=== PATIENT | female | born 1940 | race Hispanic/Latino ===

== ENCOUNTER 2023-09-04 06:21 | Day surgery (SDC) | payer MEDICARE ==
[2023-08-31 11:07] VITALS: BMI 29.2
[2023-09-04] MEDS ORDERED: Clindamycin/D5W 900 mg/50 ml Premix Bag ONE (06:59)
[2023-09-04] MEDS ORDERED: Gentamicin 80 MG/2 ML VIAL ONE (06:59)
[2023-09-04] MEDS ORDERED: Vancomycin (BATCH) 1.5 GM/300 ML BAG ONE (07:20)
[2023-09-04] MEDS ORDERED: Ketamine In 0.9 % NaCl 50 MG/5 ML SYRINGE ONE (08:37)
[2023-09-04] MEDS ORDERED: Midazolam HCl 2 mg/2 ml Vial ONE (08:42)
[2023-09-04] MEDS ORDERED: PHENYLEPHRINE-NS 100 MCG/ML 10 ML SYRINGE ONE (09:06)
[2023-09-04] MEDS ORDERED: PROPOFOL 40 ML ONE (09:42)
[2023-09-04] MEDS ORDERED: Iopamidol 370 76% 100 ML VIAL ONE (10:44)
[2023-09-04] MEDS ORDERED: Ipratropium/Albuterol 3 ML NEB ONE (10:59)
[2023-09-04] MEDS ORDERED: fentaNYL 50 mcg/mL 1 mL Vial ONE (11:01)
== END 2023-09-04 15:15 | disposition home or self-care (01) ==
LOC: SDC 06:21
PROVIDERS: ATTEND Internal Medicine Cardiovascular Disease
PROC: 0JPT0PZ Removal of Cardiac Rhythm Related Device from Trunk Subcutaneous Tissue and Fascia, Open Approach (ICD-10-PCS; principal; 2023-09-04)
PROC: 0JH609Z Insertion of Cardiac Resynchronization Defibrillator Pulse Generator into Chest Subcutaneous Tissue and Fascia, Open Approach (ICD-10-PCS; 2023-09-04)
DX: I42.8 Other cardiomyopathies (principal); I11.0 Hypertensive heart disease with heart failure; I50.22 Chronic systolic (congestive) heart failure; I49.5 Sick sinus syndrome; I44.7 Left bundle-branch block, unspecified; F10.90 Alcohol use, unspecified, uncomplicated; Z88.0 Allergy status to penicillin; Z95.0 Presence of cardiac pacemaker; Z79.82 Long term (current) use of aspirin; Z79.899 Other long term (current) drug therapy
CPT/HCPCS: 33225; 33229; 71045; 93005; C1769 ×3; C1894; C1900; C2621; J3010; J3370; J1580; J2250; J2704; J3490; J7620; Q9967

== ENCOUNTER 2024-07-04 05:36 | Day surgery (SDC) | payer MEDICARE ==
[2024-07-03 12:54] VITALS: BMI 25.6
[2024-07-04] MEDS ORDERED: CEFAZOLIN 2 GM VIAL ONE ×2 (06:17→07:33)
[2024-07-04] MEDS ORDERED: Gentamicin 80 MG/2 ML VIAL ONE ×2 (06:17→07:25)
[2024-07-04] MEDS ORDERED: Vancomycin 1 GM/200 ML (FROZEN) BAG ONE (06:30)
[2024-07-04] MEDS ORDERED: Bupivacaine PF 0.5% 30 ML VIAL ONE (06:32)
[2024-07-04] MEDS ORDERED: Propofol 500 MG/50 ML VIAL ONE ×2 (06:48→08:51)
[2024-07-04] MEDS ORDERED: Lidocaine 1% w/Epinephrine 1:100K 20 ML VIAL ONE ×2 (06:49→07:38)
[2024-07-04] MEDS ORDERED: Clindamycin/D5W 600 mg/50 ml Premix Bag ONE (07:25)
[2024-07-04] MEDS ORDERED: ePHEDrine Sulfate 50 MG/10 ML VIAL ONE (08:05)
[2024-07-04] MEDS ORDERED: Propofol 1,000 MG/100 ML VIAL IV ONE (08:50)
[2024-07-04] MEDS ORDERED: Iopamidol 370 76% 100 ML VIAL ONE (10:14)
[2024-07-04] MEDS ORDERED: fentaNYL 50 mcg/mL 1 mL Vial ONE ×2 (10:48→12:55)
== END 2024-07-04 15:01 | disposition home or self-care (01) ==
LOC: SDC 05:36
PROVIDERS: ATTEND Internal Medicine
PROC: 02PA3MZ Removal of Cardiac Lead from Heart, Percutaneous Approach (ICD-10-PCS; principal; 2024-07-04)
PROC: 02HL3JZ Insertion of Pacemaker Lead into Left Ventricle, Percutaneous Approach (ICD-10-PCS; 2024-07-04)
PROC: 0JWT3PZ Revision of Cardiac Rhythm Related Device in Trunk Subcutaneous Tissue and Fascia, Percutaneous Approach (ICD-10-PCS; 2024-07-04)
DX: I11.0 Hypertensive heart disease with heart failure (principal); I50.22 Chronic systolic (congestive) heart failure; I44.7 Left bundle-branch block, unspecified; I42.0 Dilated cardiomyopathy; I49.5 Sick sinus syndrome; T82.110D Breakdown (mechanical) of cardiac electrode, subsequent encounter; Z95.810 Presence of automatic (implantable) cardiac defibrillator; Z88.0 Allergy status to penicillin; Z79.899 Other long term (current) drug therapy
CPT/HCPCS: 33223; 33224; 33234; 36005; 36011; 37248; 71045; 75820; 93005 ×2; C1725; C1763; C1769 ×4; C1894 ×2; C1900; J0665; J1580; J2704; J3010; J3370; J3490; 93010; Q9967